=== PATIENT | male | born 1995 | race Caucasian/White ===

== ENCOUNTER 2017-11-19 09:20 | Emergency (ER) | payer BC ==
[~2017-11-19] VITALS: Ht 188 cm; Wt 73.1 kg
[2017-11-19 09:24] VITALS: BP 125/74; TEMP 36.8; Ht 188 cm; Wt 73.1 kg
--- NOTE | 2017-11-19 09:59 | DIAGNOSTIC IMAGING REPORT ---
R FOOT MIN 3 VIEWS ROUTINE CLINICAL HISTORY: R foot pain pain COMPARISON: None. DISCUSSION: The bones and joint spaces appear intact. There is no evidence of fracture, dislocation or bony disease. There is no evidence for soft tissue swelling. IMPRESSION: Negative study. The above report was generated using voice recognition software. It may contain grammatical, syntax or spelling errors. Electronically signed by: Tommy Keller M.D. 11/19/2017 9:58 AM Dictated Date/Time: 11/19/2017 9:57 AM
[2017-11-19] MEDS ORDERED: IBUPROFEN 600 MG TAB PO STA (10:09)
[2017-11-19 10:26] VITALS: PULSE 70; O2SAT 99
--- NOTE | 2017-11-20 10:58 | EMERGENCY ROOM VISIT NOTE ---
ED Visit Note First contact with patient: 09:26 Chief Complaint: Right foot pain. History of Present Illness: Mr. James is a 22-year-old white male who is brought into the ED via wheelchair complaining of right foot pain over the superior aspect of the first and second metatarsals. Patient reports he was out last night and did admit that he was drinking alcohol. He was walking home and reported he tripped and fell onto his right foot. He does not remember specifically the mechanism of injury at the time of the fall. He does report before the fall he was not lightheaded or dizziness, at the time of the fall he did not strike his head or have a loss of consciousness and since the fall he has had no signs of head injury. Currently he is complaining of pain over the first and second metatarsals. He reports at rest he has a mild achy sensation that he rates 2/10 and when he is weightbearing or ambulation the pain becomes sharp in nature and he rates his discomfort 7/10. His pain is nonradiating. His pain also worsens with palpation. He has not identified any additional relieving factors except for nonweightbearing. He has not taken any medications for pain prior to arrival at the hospital. He denies any associated symptoms of knee pain, lower leg pain , ankle pain, other foot pain, toe pain, lower leg weakness/numbness/tingling. Review of Systems: As noted above in history of present illness. Past Medical History: Patient denies. Current Medications: Patient denies. Allergies to Medications: Patient denies. Social History: Patient is not employed; he feels safe in his home environment; he denies tobacco use and admits to alcohol use. Physical Examination: Vital Signs: Date Time Temp Pulse Resp B/P (MAP) Pulse Ox O2 Delivery O2 Flow Rate FiO2 11/19/17 10:26 70 20 99 11/19/17 09:24 36.8 82 18 125/74 97 Room Air GENERAL: 22-year-old male in mild distress due to pain, nontoxic-appearing, afebrile and hemodynamically stable. NEUROLOGICAL: Awake, alert and oriented to person, place and time. Answering questions appropriately and following commands. Normal gait. Good hand eye coordination. SKIN: Warm, dry and pink. Right Great Toe: Patient has a superficial abrasion over the toe just inferior to the lateral border of the toenail. RIGHT LOWER EXTREMITY: No gross bony deformity. No tenderness in the knee, lower leg or ankle. Mild tenderness over the first and second metatarsals with no gross bony deformity or crepitus. There is early bruising started. He has full range of motion in plantarflexion, dorsiflexion, inversion and eversion of the ankle against resistance, flexion and extension of all MCP, PIP and DIP joints. Throughout the foot and especially the great toe the skin was warm and pink and capillary refill was brisk. He was able to distinguish light sensations. His abrasion is noted above on the great toe. ED Course: Patient is assessed as noted above. Patient's medication list was reviewed. Patient was given ice and 600 mg of ibuprofen for pain and swelling. Right Foot X-Rays: Were read by myself and the radiologist showing no acute fractures or dislocations. Patient's wounds were cleansed with antibacterial soap and water and a bacitracin dressing was applied. Patient's foot was placed in a postop shoe and on nonweightbearing crutches. Patient was educated about today's findings and instructed on his treatment plan ; he verbalizes understanding and agreement with this plan. Clinical Impression: Right foot pain. Status post fall. Great toe abrasion. Disposition: Patient discharged home in stable condition; prior to departure he was reassessed and rated his overall discomfort 6/10. Plan: Patient was instructed on wound care and signs of infection for his abrasion. Comfort measures were discussed with the patient concerning his foot pain including alternating ibuprofen and acetaminophen, rest, ice, postop shoe and crutch use. Patient was encouraged to follow-up with his primary care provider for recheck or signs of infection in 4-5 days if no better. She was encouraged return the ED for worsening/uncontrolled pain, uncontrolled swelling, foot/toe numbness/tingling or any signs of infection.
== END 2017-11-19 10:27 | disposition home or self-care (01) ==
LOC: C.EDB 09:23
DX: M79.671 Pain in right foot (principal); S90.411A Abrasion, right great toe, initial encounter; W01.0XXA Fall on same level from slipping, tripping and stumbling without subsequent striking against object, initial encounter; Y93.01 Activity, walking, marching and hiking; Y99.8 Other external cause status